=== PATIENT | male | born 1960 | race American Indian/Alaskan Native ===

== ENCOUNTER 2017-04-06 05:30 | Emergency (ER) | payer SELFPAY ==
[2017-04-06 07:05] LABS: Bilirubin,Urine NEG (Negative); Blood,Urine NEG (Negative); Color,Urine Yellow (Yellow); Hyaline Casts,Urine 5 /LPF; Mucus,Urine FEW /HPF; Nitrite,Urine NEG (Negative); Urobilinogen,Urine < 2.0 mg/dL (<2.0)
[2017-04-06 07:26] LABS: Calcium 9.1 mg/dL (8.4-10.2)
[2017-04-06 07:28] LABS: Basophils # (Auto) 0.1 K/mm3 (0.0-0.1); Basophils % (Auto) 0.8 % (0.0-1.8); Eosinophils # (Auto) 0.4 K/mm3 (0.0-0.4); Eosinophils % (Auto) 4.9 % (0.0-4.3); Hematocrit 38.4 % (35.5-45.6); Hemoglobin 12.7 gm/dl (11.8-15.2); Lymphocytes # (Auto) 2.1 K/mm3 (1.2-5.4); Lymphocytes % (Auto) 28.9 % (13.4-35.0); Mean Corpuscular HGB Conc 33 % (32-34); Mean Corpuscular Hemoglobin 30 pg (28-32); Mean Corpuscular Volume 90 fl (84-94); Monocytes # (Auto) 0.5 K/mm3 (0.0-0.8); Platelet Count 214 K/mm3 (140-440); Red Blood Count 4.28 M/mm3 (3.65-5.03); Red Cell Distribution Width 14.7 % (13.2-15.2)
[2017-04-06] MEDS ORDERED: MORPHINE IV ONE (13:26)
[2017-04-06] MEDS ORDERED: ZOFRAN IV ONE (13:26)
[2017-04-06] MEDS ORDERED: NACL 0.9% 1000 ML 1,000 ML IV ONE (13:26)
[2017-04-06] MEDS ORDERED: TORADOL IV ONE (13:26)
--- NOTE | 2017-04-06 13:36 | Emergency Department Report ---
ED Abdominal Pain HPI - General Chief Complaint: Abdominal Pain Stated Complaint: ABD PAIN Time Seen by Provider: 04/06/17 13:25 Source: patient Mode of arrival: Ambulatory Limitations: No Limitations - History of Present Illness Initial Comments: 56-year-old male with a past medical history of skin cancer treated with local excision presents to the hospital with complaints abdominal pain 2 weeks. Patient complains of 10/10 lower abdominal pain radiating into upper and mid abdomen. Pain is intermittent, worse with palpation, food or liquid intake. Patient states he is only able to tolerate water and had a 12 pound weight loss in the past 2 weeks. Patient denies dysuria, fever, nausea, vomiting, or diarrhea. He is uncircumcised Severity scale (0 -10): 10 - Related Data Previous Rx's Medication Instructions Recorded Last Taken Type Ciprofloxacin HCl [Cipro] 500 mg PO BID #14 tablet 04/06/17 Unknown Rx HYDROcodone/APAP 5-325 [Gill 1 each PO Q6HR PRN #15 tablet 04/06/17 Unknown Rx 5/325] Ibuprofen [Motrin] 800 mg PO Q8HR PRN #30 tablet 04/06/17 Unknown Rx Promethazine [Phenergan TAB] 25 mg PO Q6HR PRN #20 tab 04/06/17 Unknown Rx Allergies Allergy/AdvReac Type Severity Reaction Status Date / Time No Known Allergies Allergy Unverified 04/06/17 05:44 ED Review of Systems ROS: Stated complaint: ABD PAIN Other details as noted in HPI Comment: All other systems reviewed and negative Other: Constitutional: No fevers chills Eyes: No eye pain visual changes ENT: No ear pain or throat pain Neck: Denies pain Respiratory: Denies cough wheezing shortness of breath Cardiovascular: Denies chest pain, palpitations, syncope GI: As per HPI : Denies dysuria Musculoskeletal: Denies joint swelling Skin: Denies rash, lesions, erythema Neurologic: Denies headache, numbness, weakness Psychiatric: Denies suicidal ideation, hallucinations ED Past Medical Hx - Past Medical History Previous Medical History?: Yes Hx of Cancer: Yes (skin) - Social History Smoking Status: Never Smoker Substance Use Type: None - Medications Home Medications: Home Medications Medication Instructions Recorded Confirmed Last Taken Type Ciprofloxacin HCl [Cipro] 500 mg PO BID #14 tablet 04/06/17 Unknown Rx HYDROcodone/APAP 5-325 [Gill 1 each PO Q6HR PRN #15 tablet 04/06/17 Unknown Rx 5/325] Ibuprofen [Motrin] 800 mg PO Q8HR PRN #30 tablet 04/06/17 Unknown Rx Promethazine [Phenergan TAB] 25 mg PO Q6HR PRN #20 tab 04/06/17 Unknown Rx ED Physical Exam - General Limitations: No Limitations - Other Other exam information: General: No limitations, moderate distress secondary to pain Head exam: Atraumatic, normocephalic Eyes exam: Normal appearance, pupils equal reactive to light, extraocular movements intact ENT: Moist mucous membrane, normal oropharynx Neck exam: Normal inspection, full range of motion, no meningismus nontender Respiratory exam: Clear to auscultation bilateral, no wheezes, rales, crackles Cardiovascular: Normal rate and rhythm, normal heart sounds Abdomen: Soft, nondistended, suprapubic tenderness, with normal bowel sounds, no rebound, or guarding Extremity: Full range of motion normal inspection no deformity Back: Normal Inspection, full range of motion, no tenderness Neurologic: Alert, oriented x3, cranial nerves intact, no motor or sensory deficit Psychiatric: normal affect, normal mood Skin: Warm, dry, intact ED Course Vital Signs 04/06/17 04/06/17 04/06/17 05:37 13:50 14:10 Temperature 97.7 F Pulse Rate 67 Respiratory 16 18 18 Rate Blood Pressure 142/94 [Left] O2 Sat by Pulse 98 99 Oximetry - Reevaluation(s) Reevaluation #1: 04/06/17 15:08 pt feeling better with ed treatment ED Medical Decision Making - Lab Data Result diagrams: 04/06/17 06:52 04/06/17 06:52 Lab Results 04/06/17 04/06/17 04/06/17 Range/Units 06:12 06:52 06:52 WBC 7.2 (4.5-11.0) K/mm3 RBC 4.28 (3.65-5.03) M/mm3 Hgb 12.7 (11.8-15.2) gm/dl Hct 38.4 (35.5-45.6) % MCV 90 (84-94) fl MCH 30 (28-32) pg MCHC 33 (32-34) % RDW 14.7 (13.2-15.2) % Plt Count 214 (140-440) K/mm3 Lymph % (Auto) 28.9 (13.4-35.0) % Wallace % (Auto) 7.0 (0.0-7.3) % Eos % (Auto) 4.9 H (0.0-4.3) % Baso % (Auto) 0.8 (0.0-1.8) % Lymph # 2.1 (1.2-5.4) K/mm3 Wallace # 0.5 (0.0-0.8) K/mm3 Eos # 0.4 (0.0-0.4) K/mm3 Baso # 0.1 (0.0-0.1) K/mm3 Seg Neutrophils % 58.4 (40.0-70.0) % Seg Neutrophils # 4.2 (1.8-7.7) K/mm3 Sodium 142 (137-145) mmol/L Potassium 4.0 (3.6-5.0) mmol/L Chloride 102.1 (98-107) mmol/L Carbon Dioxide 23 (22-30) mmol/L Anion Gap 21 mmol/L BUN 29 H (9-20) mg/dL Creatinine 1.3 (0.8-1.5) mg/dL Estimated GFR 57 ml/min BUN/Creatinine Ratio 22 % Glucose 121 H (75-100) mg/dL Calcium 9.1 (8.4-10.2) mg/dL Lipase 36 (13-60) units/L Urine Color Yellow (Yellow) Urine Turbidity Slightly-cloudy (Clear) Urine pH 5.0 (5.0-7.0) Ur Specific [place] 1.029 (1.003-1.030) Urine Protein 30 mg/dl (Negative) mg/dL Urine Glucose (UA) Neg (Negative) mg/dL Urine Ketones Tr (Negative) mg/dL Urine Blood Neg (Negative) Urine Nitrite Neg (Negative) Urine Bilirubin Neg (Negative) Urine Urobilinogen < 2.0 (<2.0) mg/dL Ur Leukocyte Esterase Lg (Negative) Urine WBC (Auto) 96.0 H (0.0-6.0) /HPF Urine RBC (Auto) 8.0 (0.0-6.0) /HPF U Epithel Cells (Auto) 7.0 (0-13.0) /HPF Hyaline Casts 5 /LPF Urine Mucus Few /HPF - Radiology Data Radiology results: report reviewed CT abd Pelvis IV contrast: no Acute finding - Medical Decision Making UTI Culture pending Rocephin IV 1 dose Zofran, Dilaudid, Toradol ordered Positive improvement in symptoms with the treatment CT abdomen and pelvis does not show any additional abnormality Pt will be discharged with pain medication, nausea medication, and antibiotics for UTI Dehydration Tx with 1 L normal saline Likely secondary to poor by mouth tolerance due to UTI No signs of renal failure at this Positive symptom improvement prior to discharge - Differential Diagnosis UTI, appendicitis, diverticulitis Critical Care Time: No Critical care attestation.: If time is entered above; I have spent that time in minutes in the direct care of this critically ill patient, excluding procedure time. ED Disposition Clinical Impression: UTI (urinary tract infection) Disposition: TO HOME OR SELFCARE Is pt being admited?: No Does the pt Need Aspirin: No Condition: Stable Instructions: Urinary Tract Infection in Men (ED) Additional Instructions: Take the medication as prescribed. Return if symptoms worsen. Follow up with the clinic or physician provided. Please return if symptoms worsen. Urine cultures have been sent are pending in the lab to guide additional treatment if you don't improve on current antibiotics. Use the discount coupon card provided to make your medication more affordable. Prescriptions: Ciprofloxacin HCl [Cipro] 500 mg PO BID #14 tablet HYDROcodone/APAP 5-325 [Gill 5/325] 1 each PO Q6HR PRN #15 tablet PRN Reason: Pain Ibuprofen [Motrin] 800 mg PO Q8HR PRN #30 tablet PRN Reason: Pain Promethazine [Phenergan TAB] 25 mg PO Q6HR PRN #20 tab PRN Reason: Nausea Referrals: GEORGIE ALONZO MD [Staff Physician] - 3-5 Days [facility] [Provider Group] - 3-5 Days Time of Disposition: 15:20
[2017-04-06] MEDS ORDERED: cefTRIAXone 1 GM in NACL 0.9% 20 ML IV ONE (14:00)
--- NOTE | 2017-04-06 14:46 | Cat Scan Report ---
FINAL REPORT PROCEDURE: CT ABDOMEN PELVIS W CON TECHNIQUE: Computerized axial tomography of the abdomen and pelvis was performed after the IV injection of iodinated nonionic contrast. HISTORY: uti, vomiting, flank pain COMPARISON: No prior studies are available for comparison. FINDINGS: Visualized lower thorax: No significant abnormality. Liver: Normal size and attenuation. Spleen: Normal size and attenuation. Gallbladder and biliary system: Gallbladder is present. No biliary ductal dilatation. Pancreas: Normal. Adrenals: Normal. Kidneys: Normal. GI tract: The appendix is visualized and does not appear inflamed. No bowel obstruction or acute inflammation is seen. Lymph nodes and mesentery: Normal. Vasculature: Normal. Bladder: Normal. Reproductive organs: Normal. Peritoneum: No free fluid. Musculoskeletal structures: Thoracolumbar spine degenerative changes. Other: None. IMPRESSION: No acute inflammatory process is identified. No bowel obstruction.
[2017-04-06 16:03] VITALS: BP 151/85
== END 2017-04-06 16:04 | disposition home or self-care (01) ==
LOC: ED 05:30
DX: N39.0 Urinary tract infection, site not specified (principal)
CPT/HCPCS: 36415; 74177; 80048; 81001; 83690; 85025; 87086; 96361; 96365; 96375; 99284; J0696; J1885; J2270; J2405; J7030; Q9967

== ENCOUNTER 2017-04-09 16:21 | Emergency (ER) | payer SELFPAY ==
[2017-04-09 16:40] VITALS: BP 142/95
== END 2017-04-10 04:40 | disposition left against medical advice (07) ==
LOC: ED 16:21
DX: Z53.21 Procedure and treatment not carried out due to patient leaving prior to being seen by health care provider (principal)